=== PATIENT | female | born 1965 ===

== ENCOUNTER 2020-11-10 06:45 | Emergency (ER) | payer SELFPAY ==
[2020-11-10 07:52] VITALS: BP 127/70
--- NOTE | 2020-11-10 10:44 | Emergency Department Report ---
ED ENT HPI - General Chief complaint: Earache Stated complaint: FB/LEFT EAR Time Seen by Provider: 11/10/20 10:40 Source: patient, EMS Mode of arrival: Ambulatory Limitations: No Limitations - History of Present Illness Initial comments: 55-year-old -Serbian female presents to the emergency room for any blood in her left ear that she noticed last night. Patient came to the emergency room to obtain assistance. Patient denies any fever chills no nausea no vomiting. She denies any drainage from her left ear. She states that it is just very irritating. -: Last night Location: L ear Severity scale (0 -10): 3 Consistency: intermittent Improves with: none Worsens with: none - Related Data Allergies Allergy/AdvReac Type Severity Reaction Status Date / Time No Known Allergies Allergy Unverified 11/10/20 07:46 ED Dental HPI - General Chief complaint: Earache Stated complaint: FB/LEFT EAR Time Seen by Provider: 11/10/20 10:40 Source: patient, EMS Mode of arrival: Ambulatory Limitations: No Limitations - Related Data Allergies Allergy/AdvReac Type Severity Reaction Status Date / Time No Known Allergies Allergy Unverified 11/10/20 07:46 ED Review of Systems ROS: Stated complaint: FB/LEFT EAR Other details as noted in HPI Comment: All other systems reviewed and negative ED Past Medical Hx - Past Medical History Previous Medical History?: Yes Additional medical history: anemia - Surgical History Past Surgical History?: No - Social History Smoking Status: Current Every Day Smoker Substance Use Type: Alcohol ED Physical Exam - General Limitations: No Limitations General appearance: alert, in no apparent distress - Head Head exam: Present: atraumatic, normocephalic - Eye Eye exam: Present: normal appearance - ENT ENT exam: Present: mucous membranes moist - Expanded ENT Exam Expanded TM/Canal exam: Foreign Body: Left TM (Polanco in left ear) - Neck Neck exam: Present: normal inspection, full ROM - Respiratory Respiratory exam: Absent: accessory muscle use - Back Exam Back exam: Present: normal inspection - Neurological Exam Neurological exam: Present: alert, oriented X3, normal gait - Psychiatric Psychiatric exam: Present: normal affect, normal mood - Skin Skin exam: Present: warm, dry, intact, normal color. Absent: rash ED Course Vital Signs 11/10/20 07:46 Temperature 97.8 F Pulse Rate 64 Respiratory 20 Rate Blood Pressure 127/70 O2 Sat by Pulse 100 Oximetry - Foreign Body Removal Ear Location: ear canal (L) Foreign Body Suspected: insect If Insect Suspected: ear canal inspected-intac Foreign Body Removed: yes Foreign Body Removal Technique: instrumentation Tympanic Membrane Intact: Yes Patient Tolerated Procedure: well Complications: none ED Medical Decision Making - Medical Decision Making 55-year-old -Serbian female presents to the emergency room for any blood in her left ear that she noticed last night. Patient came to the emergency room to obtain assistance. Patient denies any fever chills no nausea no vomiting. She denies any drainage from her left ear. She states that it is just very irritating. Was able to pull out a polanco in her left ear. Canal is patent and nonerythematous no drainage. Patient be discharged home with instructions to take Tylenol or ibuprofen. Critical care attestation.: If time is entered above; I have spent that time in minutes in the direct care of this critically ill patient, excluding procedure time. ED Disposition Clinical Impression: Foreign body of ear, left Disposition: [id number] TO HOME OR SELFCARE Is pt being admited?: No Does the pt Need Aspirin: No Condition: Stable Instructions: Ear Foreign Body, [id number] Additional Instructions: Take Tylenol or ibuprofen as needed for pain management. Referrals: PRIMARY CARE, [Primary Care Provider] - 3-5 Days
== END 2020-11-10 10:48 | disposition home or self-care (01) ==
LOC: ED 06:45
DX: T16.2XXA Foreign body in left ear, initial encounter (principal); D64.9 Anemia, unspecified; F17.200 Nicotine dependence, unspecified, uncomplicated; X58.XXXA Exposure to other specified factors, initial encounter; Y93.89 Activity, other specified; Y92.89 Other specified places as the place of occurrence of the external cause; Y99.8 Other external cause status